=== PATIENT | male | born 1970 | race African-American/Black ===

== ENCOUNTER 2016-08-22 17:32 | Emergency (ER) | payer OTHER ==
[~2016-08-22] VITALS: Ht 175.3 cm; Wt 125.0 kg
[~2016-08-22 17:32] MED LIST: DIAZ5 PO; METF500 PO; METO25 PO; NAPR-576 PO; NAPR500 PO; ZITH250T PO
[2016-08-22 17:33] VITALS: BP 181/85; PULSE 95; RESP 14; TEMP 97.6; O2SAT 97
[2016-08-22] MEDS ORDERED: METF1000 PO (23:07)
[2016-08-22] MEDS ORDERED: SIMV20TA PO ×2 (23:07)
[2016-08-22] MEDS ORDERED: LISI-515 PO (23:07)
[2016-08-22] MEDS ORDERED: ZITHTAB PO (23:47)
[2016-08-22] MEDS ORDERED: FLUT1SPR5 EACH NARE (23:47)
[2016-08-22] MEDS ORDERED: DEXT1SUS PO (23:47)
[2016-08-23] MEDS ORDERED: IBUP-232 PO (00:14)
== END 2016-08-22 21:12 | disposition left against medical advice (07) ==
LOC: NED 17:32
DX: R05 Cough (principal)
CPT/HCPCS: 99281

== ENCOUNTER 2016-08-22 20:37 | Emergency (ER) | payer OTHER ==
[~2016-08-22] VITALS: Ht 175.3 cm; Wt 124.4 kg
[2016-08-22 21:20] VITALS: BP 155/89; PULSE 85; RESP 20; TEMP 98.5; O2SAT 97
[2016-08-22] MEDS ORDERED: SIMV20TA PO ×2 (23:07)
[2016-08-22] MEDS ORDERED: LISI-515 PO (23:07)
[2016-08-22] MEDS ORDERED: METF1000 PO (23:07)
--- NOTE | 2016-08-22 23:28 | PD ---
HPI Chief Complaint: Chest Pain Time Seen by Provider: 23:09 Travel History International Travel<30 days: No Contact w/Intl Traveler<30days: No Traveled to known affect area: No History of Present Illness HPI 46yo M with PMH of HTN, DM presents to the ED with c/o dry cough, nasal congestion, throat pain for 3 days. Pt states his ribs and chest hurt when he coughs. Mild nausea. +Nonbloody diarrhea. Denies any fever, sob, vomiting, abdominal pain, weakness or numbness. Pt states everyone at work is sick with similar complaints. PFSH Past Medical History Hx Anticoagulant Therapy: No Cardiovascular Problems: Yes (HTN) High Cholesterol: Yes Diabetes: Yes Patient Takes Glucophage: Yes Diminished Hearing: No Hypertension: Yes Tetanus Vaccination: Unknown Influenza Vaccination: No Past Surgical History Surgical History: No Previous Surgery Social History Alcohol Use: No Tobacco Use: No (quit 11 months ago smoked 1 pack of cigs a week) Substance Use: No Allergies-Medications (Allergen,Severity, Reaction): Coded Allergies: No Known Allergies (Unverified , 08/22/16) Reported Meds & Prescriptions Reported Meds & Active Scripts Active Ibuprofen 600 Mg Tab 600 Mg PO Q8HR PRN Robitussin 12 Hour Cough Liq (Dextromethorphan Polistirex Liq) 30 Mg/5 Ml Gwen 10 Ml PO Q12H PRN 5 Days Flonase Allergy Relief Nasal [place] (Fluticasone Nasal [place]) 50 Mcg/Act [place] 50 Mcg EACH NARE BID Zithromax Z-Truong (Azithromycin) 250 Mg Dspk 250 Mg PO DIRECTED 500 MG (2 tabs) day 1, then 1 tab days 2-5. Reported Simvastatin 20 Mg Tab 20 Mg PO HS Simvastatin 20 Mg Tab 20 Mg PO DAILY Lisinopril 20 Mg Tab 20 Mg PO DAILY Metformin (Metformin HCl) 1,000 Mg Tab 1,000 Mg PO BIDPC With meals Review of Systems Except as stated in HPI: all other systems reviewed are Neg Physical Exam Narrative GENERAL: 46yo M not in distress. SKIN: Warm and dry. HEAD: Atraumatic. Normocephalic. EYES: Pupils equal and round. No scleral icterus. No injection or drainage. ENT: +Edematous nasal turbinates. Throat: Uvula midline. No exudate. NECK: Trachea midline. No JVD. CARDIOVASCULAR: Regular rate and rhythm. No murmur appreciated. RESPIRATORY: No accessory muscle use. Clear to auscultation. Breath sounds equal bilaterally. GASTROINTESTINAL: Abdomen soft, non-tender, nondistended. No rebound tenderness or guarding. MUSCULOSKELETAL: No obvious deformities. No clubbing. No cyanosis. No edema. NEUROLOGICAL: Awake and alert. No obvious cranial nerve deficits. Motor grossly within normal limits. Normal speech. PSYCHIATRIC: Appropriate mood and affect; insight and judgment normal. Data Data Last Documented VS Vital Signs Date Time Temp Pulse Resp B/P Pulse Ox O2 Delivery O2 Flow Rate FiO2 08/22/16 23:44 62 19 157/85 99 Room Air 08/22/16 21:20 98.5 Orders Electrocardiogram (08/22/16 23:21) Basic Metabolic Panel (Bmp) (08/22/16 23:21) Ckmb (Isoenzyme) Profile (08/22/16 23:21) Complete Blood Count With Diff (08/22/16 23:21) Troponin I (08/22/16 23:21) Chest, Single Ap (08/22/16 23:21) Ecg Monitoring (08/22/16 23:21) Iv Access Insert/Monitor (08/22/16 23:21) Guaifen-Cod 200-20 Mg/10ml Liq (Robituss (08/22/16 23:30) Ibuprofen (Motrin) (08/23/16 00:15) Potassium Chloride (Kcl) (08/23/16 00:15) CKMB (08/22/16 23:40) CKMB% (08/22/16 23:40) Labs Laboratory Tests Test 08/22/16 23:40 White Blood Count 10.7 TH/MM3 Red Blood Count 4.98 MIL/MM3 Hemoglobin 14.2 GM/DL Hematocrit 42.7 % Mean Corpuscular Volume 85.9 FL Mean Corpuscular Hemoglobin 28.5 PG Mean Corpuscular Hemoglobin 33.2 % Concent Red Cell Distribution Width 12.4 % Platelet Count 224 TH/MM3 Mean Platelet Volume 7.4 FL Neutrophils (%) (Auto) 55.2 % Lymphocytes (%) (Auto) 30.2 % Monocytes (%) (Auto) 9.7 % Eosinophils (%) (Auto) 1.1 % Basophils (%) (Auto) 3.8 % Neutrophils # (Auto) 6.0 TH/MM3 Lymphocytes # (Auto) 3.2 TH/MM3 Monocytes # (Auto) 1.0 TH/MM3 Eosinophils # (Auto) 0.1 TH/MM3 Basophils # (Auto) 0.4 TH/MM3 CBC Comment DIFF FINAL Differential Comment Sodium Level 141 MEQ/L Potassium Level 3.3 MEQ/L Chloride Level 103 MEQ/L Carbon Dioxide Level 31.5 MEQ/L Anion Gap 7 MEQ/L Blood Urea Nitrogen 8 MG/DL Creatinine 1.10 MG/DL Estimat Glomerular Filtration 88 ML/MIN Rate Random Glucose 248 MG/DL Calcium Level 8.2 MG/DL Total Creatine Kinase 229 U/L Creatine Kinase MB 1.2 NG/ML Troponin I LESS THAN 0.02 NG/ML MDM Medical Decision Making Medical Screen Exam Complete: Yes Emergency Medical Condition: Yes Interpretation(s) EKG: NSR 84bpm. Normal axis. No ST segment elevation or depression. Differential Diagnosis Viral syndrome vs. URI vs. bronchitis vs. PNA vs. ACS Narrative Course 46yo M with symptoms consistent with viral syndrome. However, pt does have HTN and DM and is a former smoker so will obtain EKG, cardiac enzyme and CXR. Labs reviewed, no leukocytosis. Troponin negative. Glucose elevated at 248. No anion gap. K: 3.3, replaced orally with 40mEq KCl. CXR showed no acute disease. VS stable. Impression is viral syndrome and chest pain is musculoskeletal with coughing. Pt given robitussin and ibuprofen with improvement of pain. Return precautions given. Diagnosis Primary Impression: Viral syndrome Patient Instructions: General Instructions Departure Forms: Tests/Procedures Additional Instructions: Please follow up with your PMD in 3-7 days. Return to the ED if your symptoms worsen. Med/Other Pt SpecificInfo: Prescription(s) given Scripts Ibuprofen 600 Mg [id number] Mg PO Q8HR PRN (PAIN) #20 TAB Ref 0 Prov:Melissa Quarles DO 08/23/16 Dextromethorphan Polistirex Liq (Robitussin 12 Hour Cough Liq)30 Mg/5 Ml Sus10 Ml PO Q12H PRN (COUGH) 5 Days Ref 0 Prov:Melissa Quarles DO 08/22/16 Fluticasone Nasal [place] (Flonase Allergy Relief Nasal [place])50 Mcg/Act Spray50 Mcg EACH NARE BID #1 BOTTLE Ref 0 Prov:Melissa Quarles 08/22/16 Azithromycin (Zithromax Z-Truong)250 Mg [id number] Mg PO DIRECTED #1 DSPK Ref 0 500 MG (2 tabs) day 1, then 1 tab days 2-5. Prov:Melissa Quarles 08/22/16 Disposition: 01 DISCHARGE HOME Condition: Stable QuarlesMelissa DO Aug 22, 2016 23:27
[2016-08-22] MEDS ORDERED: guaiFENesin/CODEINE SYRUP 200 MG/20 MG/10 ML CUP PO ONE (23:30)
[2016-08-22 23:44] VITALS: BP 157/85; PULSE 62; RESP 19; O2SAT 99
[2016-08-22] MEDS ORDERED: ZITHTAB PO (23:47)
[2016-08-22] MEDS ORDERED: DEXT1SUS PO (23:47)
[2016-08-22] MEDS ORDERED: FLUT1SPR5 EACH NARE (23:47)
[2016-08-22 23:51] LABS: BASOPHIL # 0.4 TH/MM3 (0-0.2); BASOPHIL % 3.8 % (0.0-2.0); EOSINOPHIL # 0.1 TH/MM3 (0-0.4); EOSINOPHIL % 1.1 % (0.0-4.0); HEMATOCRIT 42.7 % (39.0-51.0); LYMPH % 30.2 % (9.0-44.0); LYMPHOCYTE # 3.2 TH/MM3 (1.0-4.8); MEAN CELL VOLUME 85.9 FL (80.0-100.0); MEAN CORPUSCULAR HEMOGLOBIN 28.5 PG (27.0-34.0); MEAN CORPUSCULAR HGB CONC 33.2 % (32.0-36.0); MONO % 9.7 % (0.0-8.0); NEUT % 55.2 % (16.0-70.0); PLATELET COUNT 224 TH/MM3 (150-450); RED BLOOD COUNT 4.98 MIL/MM3 (4.50-5.90); RED CELL DISTRIBUTION WIDTH 12.4 % (11.6-17.2); WHITE BLOOD COUNT 10.7 TH/MM3 (4.0-11.0)
[2016-08-22 23:52] LABS: HEMO FLAGS DIFF FINAL
--- NOTE | 2016-08-22 23:53 | RADHPO ---
EXAM DATE/TIME: 08/22/2016 23:42 [facility] COMPARISON: No previous studies available for comparison. INDICATIONS : Patient states cough. MEDICAL HISTORY : Hypertension. Hypercholesterolemia. Diabetes mellitus type II. SURGICAL HISTORY : None. ENCOUNTER: Initial ACUITY: 3 days PAIN SCORE: 0/10 LOCATION: Bilateral chest FINDINGS: A single view of the chest demonstrates the lungs to be symmetrically aerated without evidence of mas s, infiltrate or effusion. The cardiomediastinal contours are unremarkable. Osseous structures are intact.CONCLUSION: No acute disease. Yuri Obregon MD on August 22, 2016 at 23:52 Board Certified Radiologist. This report was verified electronically.
[2016-08-22 23:59] LABS: CHLORIDE 103 MEQ/L (98-107); POTASSIUM 3.3 MEQ/L (3.5-5.1); SODIUM (NA) 141 MEQ/L (136-145)
[2016-08-23 00:02] LABS: ANION GAP 7 MEQ/L (5-15); BICARBONATE 31.5 MEQ/L (21.0-32.0); BLOOD UREA NITROGEN 8 MG/DL (7-18)
[2016-08-23 00:06] LABS: GLOMERULAR FILTRATION RATE 88 ML/MIN (>89)
[2016-08-23 00:09] LABS: CREATINE KINASE 229 U/L (39-308)
[2016-08-23] MEDS ORDERED: IBUP-232 PO (00:14)
[2016-08-23] MEDS ORDERED: IBUPROFEN 600 MG TAB PO ONE (00:15)
[2016-08-23] MEDS ORDERED: POTASSIUM CHLORIDE 20 MEQ CONTROLLED RELEASE TAB PO ONE (00:15)
[2016-08-23 00:22] LABS: CKMB 1.2 NG/ML (0.5-3.6)
[2016-08-23 00:39] VITALS: BP 153/77
--- NOTE | 2016-08-23 16:27 | EKG ---
Date Performed: 08/22/2016 Time Performed: 23:33:48 PTAGE: 46 years EKG: Sinus rhythm Normal ECG NO PREVIOUS TRACING DOCTOR: Med Maloney Interpretating Date/Time 08/23/2016 16:24:57
== END 2016-08-23 00:40 | disposition home or self-care (01) ==
LOC: PHED 20:37
DX: B34.9 Viral infection, unspecified (principal); E11.9 Type 2 diabetes mellitus without complications; E78.00 Pure hypercholesterolemia, unspecified; I10 Essential (primary) hypertension; Z79.4 Long term (current) use of insulin; Z87.891 Personal history of nicotine dependence
CPT/HCPCS: 71010; 80048; 82550; 82552; 84484; 85025; 93005

== ENCOUNTER 2016-09-17 18:44 | Emergency (ER) | payer OTHER ==
[~2016-09-17] VITALS: Ht 172.7 cm; Wt 123.2 kg
[~2016-09-17 18:44] MED LIST changes: +DEXT1SUS PO; -DIAZ5 PO; +FLUT1SPR5 EACH NARE; +IBUP-232 PO; +LISI-515 PO; +METF1000 PO; -METF500 PO; -METO25 PO; -NAPR-576 PO; -NAPR500 PO; +SIMV20TA PO; -ZITH250T PO; +ZITHTAB PO
[2016-09-17 19:09] VITALS: BP 155/99; PULSE 86; RESP 20; TEMP 98.5; O2SAT 98
--- NOTE | 2016-09-17 20:35 | PD ---
HPI Chief Complaint: Headache Time Seen by Provider: 20:03 Travel History International Travel<30 days: No Contact w/Intl Traveler<30days: No Traveled to known affect area: No History of Present Illness HPI Patient is a 46-year-old male with a history of diabetes presents emergency department for evaluation of dizziness as well as headache which happened about 1400 this afternoon. Patient states he was bending over at the waist and suddenly felt dizzy like the room was spinning only lasted for a few seconds. He states he had a mild headache at that time which is nearly resolved completely at this time. Denies any focal weakness any problems ambulating nausea vomiting. Patient states this is never happened to him before, no history of TIAs. PFSH Past Medical History Hx Anticoagulant Therapy: No Cardiovascular Problems: Yes (HYPERTENSION ) High Cholesterol: Yes Diabetes: Yes Patient Takes Glucophage: Yes Diminished Hearing: No Hypertension: Yes ?: Not Social History Alcohol Use: No Tobacco Use: No (quit 11 months ago smoked 1 pack of cigs a week) Substance Use: No Allergies-Medications (Allergen,Severity, Reaction): Coded Allergies: No Known Allergies (Unverified , 08/22/16) Reported Meds & Prescriptions Reported Meds & Active Scripts Active Ibuprofen 600 Mg Tab 600 Mg PO Q8HR PRN Flonase Allergy Relief Nasal [place] (Fluticasone Nasal [place]) 50 Mcg/Act [place] 50 Mcg EACH NARE BID Reported Simvastatin 20 Mg Tab 20 Mg PO DAILY Lisinopril 20 Mg Tab 20 Mg PO DAILY Metformin (Metformin HCl) 1,000 Mg Tab 1,000 Mg PO BIDPC With meals Review of Systems Except as stated in HPI: all other systems reviewed are Neg Physical Exam Narrative GENERAL: Well-developed well-nourished no apparent distress SKIN: Warm and dry. HEAD: Atraumatic. Normocephalic. EYES: Pupils equal and round. No scleral icterus. No injection or drainage. ENT: No nasal bleeding or discharge. Mucous membranes pink and moist. NECK: Trachea midline. No JVD. CARDIOVASCULAR: Regular rate and rhythm. No murmur appreciated. RESPIRATORY: No accessory muscle use. Clear to auscultation. Breath sounds equal bilaterally. GASTROINTESTINAL: Abdomen soft, non-tender, nondistended. Hepatic and splenic margins not palpable. MUSCULOSKELETAL: No obvious deformities. No clubbing. No cyanosis. No edema. NEUROLOGICAL: Leg alert and oriented 3, cranial nerves II through XII are grossly intact nonfocal, 5 out of 5 strength in all 4 extremities, cerebellar testing normal. PSYCHIATRIC: Appropriate mood and affect; insight and judgment normal. Data Data Last Documented VS Vital Signs Date Time Temp Pulse Resp B/P Pulse Ox O2 Delivery O2 Flow Rate FiO2 09/17/16 20:57 78 18 141/82 99 09/17/16 19:09 98.5 Orders Ibuprofen (Motrin) (09/17/16 20:45) [facility] Medical Decision Making Medical Screen Exam Complete: Yes Emergency Medical Condition: Yes Differential Diagnosis Headache, cluster, migraine, tension. Subarachnoid hemorrhage extremely unlikely, acute stroke syndrome highly unlikely. Benign paroxysmal vertigo. Narrative Course Is a 46-year-old male presents emergency department for evaluation of headache and dizziness onset approximately noon today. Patient on arrival had symptoms have near completely resolved except for mild headache. Patient is coming by his and both state they would like to go home at this point. I discussed with him that basilar TIA is on the differential but is highly unlikely. Discussed he needs to follow up with his primary care physician for further workup. Discussed return to ED criteria. He was offered CAT scan and he declined at this time citing risk of radiation. Diagnosis Primary Impression: Headache Qualified Code: R51 - Nonintractable headache, unspecified chronicity pattern , unspecified headache type Disposition: 01 DISCHARGE HOME Condition: Stable Ayush Castañeda MD Sep 17, 2016 20:35
[2016-09-17] MEDS ORDERED: IBUPROFEN 600 MG TAB PO ONE (20:45)
[2016-09-17 20:57] VITALS: BP 141/82
== END 2016-09-17 21:17 | disposition home or self-care (01) ==
LOC: PHED 18:44
DX: R51 Headache (principal); R42 Dizziness and giddiness; E11.9 Type 2 diabetes mellitus without complications; I10 Essential (primary) hypertension; E78.00 Pure hypercholesterolemia, unspecified; Z79.84 Long term (current) use of oral hypoglycemic drugs; Z86.79 Personal history of other diseases of the circulatory system; Z87.891 Personal history of nicotine dependence
CPT/HCPCS: 99283

== ENCOUNTER 2016-11-15 17:55 | Emergency (ER) | payer OTHER ==
[~2016-11-15] VITALS: Ht 175.3 cm; Wt 120.0 kg
[~2016-11-15 17:55] MED LIST changes: -DEXT1SUS PO; -ZITHTAB PO
[2016-11-15 18:06] VITALS: BP 148/79; PULSE 99; RESP 16; TEMP 98.7; O2SAT 96
[2016-11-15] MEDS ORDERED: EMPA1TAB PO (18:10)
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
[2016-11-15 18:43] LABS: AUTOMATED NEUTROPHIL # 5.1 TH/MM3 (1.8-7.7); BASOPHIL # 0.3 TH/MM3 (0-0.2); EOSINOPHIL # 0.1 TH/MM3 (0-0.4); EOSINOPHIL % 0.6 % (0.0-4.0); HEMATOCRIT 42.5 % (39.0-51.0); HEMO FLAGS DIFF FINAL; LYMPH % 28.5 % (9.0-44.0); LYMPHOCYTE # 2.5 TH/MM3 (1.0-4.8); MEAN CELL VOLUME 85.4 FL (80.0-100.0); MEAN CORPUSCULAR HEMOGLOBIN 29.4 PG (27.0-34.0); MEAN CORPUSCULAR HGB CONC 34.5 % (32.0-36.0); MONO % 8.5 % (0.0-8.0); NEUT % 58.4 % (16.0-70.0); PLATELET COUNT 218 TH/MM3 (150-450); RED BLOOD COUNT 4.98 MIL/MM3 (4.50-5.90); RED CELL DISTRIBUTION WIDTH 12.3 % (11.6-17.2); WHITE BLOOD COUNT 8.7 TH/MM3 (4.0-11.0)
[2016-11-15 18:50] LABS: POTASSIUM 3.8 MEQ/L (3.5-5.1)
[2016-11-15 18:53] LABS: BICARBONATE 33.1 MEQ/L (21.0-32.0)
[2016-11-15 19:35] VITALS: BP 145/75
== END 2016-11-15 19:37 | disposition home or self-care (01) ==
LOC: PHED 17:55
DX: E11.649 Type 2 diabetes mellitus with hypoglycemia without coma (principal); R42 Dizziness and giddiness; I10 Essential (primary) hypertension; E78.00 Pure hypercholesterolemia, unspecified; Z79.84 Long term (current) use of oral hypoglycemic drugs
CPT/HCPCS: 80048; 85025; 99285

== ENCOUNTER 2017-04-07 11:14 | Emergency (ER) | payer OTHER ==
[~2017-04-07] VITALS: Ht 175.3 cm; Wt 120.0 kg
[~2017-04-07 11:14] MED LIST changes: +EMPA1TAB PO; -FLUT1SPR5 EACH NARE; -IBUP-232 PO
[2017-04-07 11:16] VITALS: BP 146/88; PULSE 95; RESP 14; TEMP 98.2; O2SAT 98
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
[2017-04-07 12:05] LABS: BLOOD, URINE NEG (NEG); GLUCOSE,URINE 1000 mg/dL (NEG); KETONE, URINE NEG (NEG); NITRITE,URINE NEG (NEG); URINE COLOR LIGHT-YELLOW (YELLW/STRAW)
[2017-04-07 12:08] LABS: COMMENT (UR) CULT NOT INDICATED; CULTURE IF INDICATED CULT NOT INDICATED
[2017-04-07 12:26] LABS: AUTOMATED NEUTROPHIL # 5.2 TH/MM3 (1.8-7.7); BASOPHIL # 0.1 TH/MM3 (0-0.2); BASOPHIL % 1.1 % (0.0-2.0); EOSINOPHIL # 0.1 TH/MM3 (0-0.4); EOSINOPHIL % 1.1 % (0.0-4.0); HEMATOCRIT 43.1 % (39.0-51.0); HEMO FLAGS DIFF FINAL; LYMPH % 27.5 % (9.0-44.0); LYMPHOCYTE # 2.3 TH/MM3 (1.0-4.8); MEAN CELL VOLUME 84.3 FL (80.0-100.0); MEAN CORPUSCULAR HEMOGLOBIN 29.7 PG (27.0-34.0); MEAN CORPUSCULAR HGB CONC 35.2 % (32.0-36.0); NEUT % 62.3 % (16.0-70.0); PLATELET COUNT 201 TH/MM3 (150-450); RED BLOOD COUNT 5.12 MIL/MM3 (4.50-5.90); RED CELL DISTRIBUTION WIDTH 13.3 % (11.6-17.2); WHITE BLOOD COUNT 8.4 TH/MM3 (4.0-11.0)
[2017-04-07 12:31] LABS: BICARBONATE 28.6 MEQ/L (21.0-32.0); POTASSIUM 3.9 MEQ/L (3.5-5.1)
--- NOTE | 2017-04-07 12:35 | PD ---
Data Data Last Documented VS Vital Signs Date Time Temp Pulse Resp B/P (MAP) Pulse Ox O2 Delivery O2 Flow Rate FiO2 04/07/17 11:16 98.2 95 14 146/88 (107) 98 Orders Orders Iv Access Insert/Monitor (04/07/17 11:39) Complete Blood Count With Diff (04/07/17 11:39) Basic Metabolic Panel (Bmp) (04/07/17 11:39) Urinalysis - C+S If Indicated (04/07/17 11:39) Wound Culture And Gram Stain (04/07/17 12:23) Insulin Human Regular Inj (Novolin R Inj (04/07/17 12:45) Sodium Chlor 0.9% 1000 Ml Inj (Ns 1000 M (04/07/17 12:45) Labs Laboratory Tests Test 04/07/17 11:52 04/07/17 11:57 Urine Color LIGHT-YELLOW Urine Turbidity CLEAR Urine pH 7.0 Urine Specific [place] 1.026 Urine Protein NEG mg/dL Urine Glucose (UA) 1000 mg/dL Urine Ketones NEG mg/dL Urine Occult Blood NEG Urine Nitrite NEG Urine Bilirubin NEG Urine Urobilinogen LESS THAN 2.0 MG/DL Urine Leukocyte Esterase NEG Urine WBC LESS THAN 1 /hpf Microscopic Urinalysis Comment CULT NOT INDICATED White Blood Count 8.4 TH/MM3 Red Blood Count 5.12 MIL/MM3 Hemoglobin 15.2 GM/DL Hematocrit 43.1 % Mean Corpuscular Volume 84.3 FL Mean Corpuscular Hemoglobin 29.7 PG Mean Corpuscular Hemoglobin Concent 35.2 % Red Cell Distribution Width 13.3 % Platelet Count 201 TH/MM3 Mean Platelet Volume 8.0 FL Neutrophils (%) (Auto) 62.3 % Lymphocytes (%) (Auto) 27.5 % Monocytes (%) (Auto) 8.0 % Eosinophils (%) (Auto) 1.1 % Basophils (%) (Auto) 1.1 % Neutrophils # (Auto) 5.2 TH/MM3 Lymphocytes # (Auto) 2.3 TH/MM3 Monocytes # (Auto) 0.7 TH/MM3 Eosinophils # (Auto) 0.1 TH/MM3 Basophils # (Auto) 0.1 TH/MM3 CBC Comment DIFF FINAL Differential Comment Blood Urea Nitrogen 12 MG/DL Creatinine 1.39 MG/DL Random Glucose 382 MG/DL Calcium Level 9.3 MG/DL Sodium Level 135 MEQ/L Potassium Level 3.9 MEQ/L Chloride Level 100 MEQ/L Carbon Dioxide Level 28.6 MEQ/L Anion Gap 6 MEQ/L Estimat Glomerular Filtration Rate 67 ML/MIN MDM Supervised Visit with AINSLEY: Yes Narrative Course The history, exam, and medical decision-making in the associated midlevel provider note were completed with my assistance. I reviewed and agree with the findings presented. I attest that I had a [id number] encounter with the patient on the same day, and personally performed and documented my assessment and findings in the medical record. *My assessment and Findings: This is a 46-year-old male who has a history of diabetes who presents to the emergency department having run out of his diabetes medication also with some small boils on his abdomen. His blood sugar here was 382. His labs are otherwise reassuring. Patient was given a liter of IV fluid and insulin. He'll be restarted on his metformin and his abscesses were incized . I think the patient is safe for outpatient management. Heaven Anderson MD Apr 07, 2017 12:35
[2017-04-07] MEDS ORDERED: METF1000 PO (12:40)
[2017-04-07] MEDS ORDERED: BACT800T5 PO (12:40)
[2017-04-07] MEDS ORDERED: CEPH-460 PO (12:40)
[2017-04-07] MEDS ORDERED: LISI-515 PO (12:40)
[2017-04-07] MEDS ORDERED: SODIUM CHLOR 0.9% 1000 ML INJ 1,000 ML IV ONE (12:45)
[2017-04-07] MEDS ORDERED: INSULIN HUMAN REGULAR 1,000 UNITS/10 ML VIAL SQ ONE (12:45)
[2017-04-07 13:25] VITALS: BP 129/86; PULSE 82; RESP 16; O2SAT 98
== END 2017-04-07 13:33 | disposition home or self-care (01) ==
LOC: NEPC 11:14
DX: L02.211 Cutaneous abscess of abdominal wall (principal); E11.65 Type 2 diabetes mellitus with hyperglycemia; M79.645 Pain in left finger(s); B96.20 Unspecified Escherichia coli [E. coli] as the cause of diseases classified elsewhere; B95.2 Enterococcus as the cause of diseases classified elsewhere; I10 Essential (primary) hypertension; E78.00 Pure hypercholesterolemia, unspecified; Z79.84 Long term (current) use of oral hypoglycemic drugs; Z86.79 Personal history of other diseases of the circulatory system
CPT/HCPCS: 10061; 80048; 81001; 85025; 87070; 87077; 87186; 96372; 99284; J1815; J7030; 87205

== ENCOUNTER 2017-04-10 11:32 | Emergency (ER) | payer OTHER ==
[~2017-04-10] VITALS: Ht 175.3 cm; Wt 120.0 kg
[~2017-04-10 11:32] MED LIST changes: +BACT800T5 PO; +CEPH-460 PO
[2017-04-10 11:33] VITALS: BP 132/66; PULSE 95; RESP 20; TEMP 98.8; O2SAT 97
[2017-04-10 11:40] VITALS: BP 155/70; PULSE 91; RESP 14; TEMP 98; O2SAT 97
--- NOTE | 2017-04-10 11:42 | PD ---
HPI Chief Complaint: Skin Problem Time Seen by Provider: 11:42 Travel History International Travel<30 days: No Contact w/Intl Traveler<30days: No Traveled to known affect area: No History of Present Illness HPI 46-year-old male came to the emergency room with history of right thumb infection that has been getting worse since past 4 days. She was in the emergency room on Friday and was discharged home on Bactrim and Keflex for some boils that were incised and drained and was told that the antibiotic should cover for his thumb as well. However the abdominal skin boils have become much better but he has developed worsening abscess on his right thumb. Patient is also complaining of some rash and thrush at the tip of his penis. Patient is a diabetic. He says he's been taking his medications like he supposed to. Vital signs were stable. No fever or chills. PFSH Past Medical History Narrative Medical List of his past medical, surgical, social and family history was reviewed from the nursing note. Hx Anticoagulant Therapy: No Cardiovascular Problems: Yes (HYPERTENSION ) High Cholesterol: Yes Diabetes: Yes Diminished Hearing: No Hypertension: Yes Social History Alcohol Use: No Tobacco Use: No Substance Use: No Allergies-Medications (Allergen,Severity, Reaction): Coded Allergies: No Known Allergies (Unverified , 04/10/17) Comments No known drug allergies. Reported Meds & Prescriptions Reported Meds & Active Scripts Active Diflucan (Fluconazole) 150 Mg Tab 150 Mg PO ONCE Nystatin Topical (Nystatin) 100,000 unit/gm Cream 1 Applic TOPICAL BID Ampicillin 500 Mg Cap 500 Mg PO TID Keflex (Cephalexin) 500 Mg Cap 500 Mg PO Q6H 10 Days Bactrim DS (Sulfamethoxazole-Trimethoprim) 800-160 Mg Tab 1 Tab PO BID Lisinopril 20 Mg Tab 20 Mg PO DAILY Metformin (Metformin HCl) 1,000 Mg Tab 1,000 Mg PO BIDPC With meals Reported Jardiance (Empagliflozin) 10 Mg Tab Unknown Dose PO DAILY Simvastatin 20 Mg Tab 20 Mg PO DAILY Narrative Medication List of his home medications reviewed from the nursing note. Review of Systems Except as stated in HPI: all other systems reviewed are Neg Physical Exam Narrative GENERAL: Awake, alert, obese, mild distress SKIN: Focused skin assessment warm/dry. Left thumb paronychia on the ulnar aspect of the nail, healing pustules on the abdomen. HEAD: Atraumatic. Normocephalic. EYES: Pupils equal and round. No scleral icterus. No injection or drainage. ENT: No nasal bleeding or discharge. Mucous membranes pink and moist. NECK: Trachea midline. No JVD. CARDIOVASCULAR: Regular rate and rhythm. No murmur appreciated. RESPIRATORY: No accessory muscle use. Clear to auscultation. Breath sounds equal bilaterally. GASTROINTESTINAL: Abdomen soft, non-tender, nondistended. Hepatic and splenic margins not palpable. : Patient is uncircumcised and he has thrush on the glans penis as well as the prepuce MUSCULOSKELETAL: No obvious deformities. No clubbing. No cyanosis. No edema. NEUROLOGICAL: Awake and alert. No obvious cranial nerve deficits. Motor grossly within normal limits. Normal speech. PSYCHIATRIC: Appropriate mood and affect; insight and judgment normal. Data Data Last Documented VS Vital Signs Date Time Temp Pulse Resp B/P (MAP) Pulse Ox O2 Delivery O2 Flow Rate FiO2 04/10/17 13:26 04/10/17 11:40 98.0 91 14 97 Room Air Orders Orders Wound Culture And Gram Stain (04/10/17 12:01) Amoxicillin (Trimox) (04/10/17 12:45) MDM Medical Decision Making Medical Screen Exam Complete: Yes Emergency Medical Condition: Yes Medical Record Reviewed: Yes Differential Diagnosis Paronychia, candidiasis Narrative Course 12:25 PM the paronychia was drained. Please refer to my procedure note. Culture has been sent. The culture of the wound from the incision and drainage from Friday is growing Escherichia coli and enterococcus. They both are sensitive to ampicillin. Patient was sent home on Bactrim and Keflex. I have asked the patient to stop taking the Keflex and instead started him on ampicillin. I've asked him to continue with the Bactrim pending the culture result of the paronychia pus. I've also given him a prescription for nystatin as well as Diflucan. He'll be discharged home. Patient tolerated the procedure well. Procedures Procedure Narrative Paronychia incision and drainage: The area was cleaned with alcohol and Betadine times one. A sterile #11 blade was chosen to make a 1 cm incision at the proximal nail fold extending into the lateral nail fold on the ulnar aspect of the left thumb. Immediately thick purulent material came out. Swab was collected. Some more purulent material was expressed until no more could be expressed out. Patient tolerated the procedure well. EKG Prior to Arrival: No Diagnosis Primary Impression: Paronychia Additional Impression: Candidiasis Referrals: Primary Care Physician Departure Forms: Tests/Procedures, Work Release Enter return to work date: Apr 11, 2017 Additional Instructions: Please return to the ER if the condition worsens or any other new concerns. Please soak the thumb in lukewarm water with some Epsom salt 10 minutes each time as frequently as possible during the day until the wound completely heals. Take the new antibiotic as per the prescription direction. Please stop taking cephalexin which was given to you 4 days ago. You should continue taking the Bactrim and finish the course. Take the additional medication prescription for your yeast infection as well. Follow-up with your primary care. Continue checking her blood sugar and take the diabetes medication as per the prescription direction. Med/Other Pt SpecificInfo: Prescription(s) given, Med Stopped (cephalexin) Scripts Fluconazole (Diflucan) 150 Mg Tab 150 MG PO ONCE for Infection, #1 TAB 0 Refills Prov: La Payne MD 04/10/17 Nystatin Topical (Nystatin Topical) 100,000 unit/gm Cream 1 APPLIC TOPICAL BID for Infection, #15 GM 0 Refills Prov: La Payne MD 04/10/17 Ampicillin (Ampicillin) 500 Mg Cap 500 MG PO TID, #30 CAP Prov: La Payne MD 04/10/17 Disposition: 01 DISCHARGE HOME Condition: Stable La Payne MD Apr 10, 2017 11:42
[2017-04-10] MEDS ORDERED: AMPICILLIN 500 MG CAP PO ONE (12:15)
[2017-04-10] MEDS ORDERED: DIFL150T PO (12:20)
[2017-04-10] MEDS ORDERED: AMPI500C8 PO (12:20)
[2017-04-10] MEDS ORDERED: NYST15T TOPICAL (12:20)
[2017-04-10] MEDS ORDERED: AMOXICILLIN (TRIHYDRATE) 500 MG CAP PO ONE (12:45)
== END 2017-04-10 13:26 | disposition home or self-care (01) ==
LOC: NEPD 11:32
DX: L03.012 Cellulitis of left finger (principal); B37.9 Candidiasis, unspecified; B96.20 Unspecified Escherichia coli [E. coli] as the cause of diseases classified elsewhere; I10 Essential (primary) hypertension; E78.00 Pure hypercholesterolemia, unspecified; E11.9 Type 2 diabetes mellitus without complications; Z79.899 Other long term (current) drug therapy
CPT/HCPCS: 86403; 87070; 87077; 87186; 99284

== ENCOUNTER 2017-08-11 15:01 | Emergency (ER) | payer OTHER ==
[~2017-08-11 15:01] MED LIST changes: +AMPI500C8 PO; +DIFL150T PO; +NYST15T TOPICAL
[2017-08-11 15:06] VITALS: BP 150/75; PULSE 94; RESP 22; TEMP 98.9; O2SAT 97
[2017-08-11 16:21] VITALS: BP 140/75; PULSE 93; RESP 16; TEMP 99.5; O2SAT 96
[2017-08-11] MEDS ORDERED: LISI10TA3 PO (16:28)
[2017-08-11] MEDS ORDERED: ONDANSETRON HCL 4 MG/2 ML VIAL IV PUSH ONE (17:00)
[2017-08-11] MEDS ORDERED: KETOROLAC TROMETHAMINE 30 MG/ML (IVP) VIAL IV PUSH ONE (17:00)
[2017-08-11] MEDS ORDERED: SODIUM CHLOR 0.9% 1000 ML INJ 1,000 ML IV ONE (17:00)
--- NOTE | 2017-08-11 17:22 | RADRPT ---
EXAM DATE/TIME: 08/11/2017 17:08 [facility] COMPARISON: CHEST SINGLE AP, August 22, 2016, 23:42. INDICATIONS : Cough, shortness of breath, and substernal chest pain. MEDICAL HISTORY : Hypertension. Hypercholesterolemia. Diabetes mellitus type II. SURGICAL HISTORY : None. ENCOUNTER: Initial ACUITY: 3 days PAIN SCORE: 4/10 LOCATION: Bilateral chest FINDINGS: PA and lateral views of the chest demonstrate the lungs to be symmetrically aerated without evidence of mass, infiltrate or effusion. The cardiomediastinal contours are unremarkable. Osseous structure s are intact. CONCLUSION: 1. No acute cardiopulmonary findings. Nazario Christianson MD on August 11, 2017 at 17:19 Board Certified Radiologist. This report was verified electronically.
[2017-08-11 17:44] LABS: AUTOMATED NEUTROPHIL # 5.3 TH/MM3 (1.8-7.7); BASOPHIL # 0.1 TH/MM3 (0-0.2); BASOPHIL % 0.9 % (0.0-2.0); EOSINOPHIL % 0.4 % (0.0-4.0); HEMATOCRIT 48.3 % (39.0-51.0); HEMOGLOBIN 15.3 GM/DL (13.0-17.0); LYMPH % 20.8 % (9.0-44.0); LYMPHOCYTE # 1.6 TH/MM3 (1.0-4.8); MEAN CELL VOLUME 88.7 FL (80.0-100.0); MEAN CORPUSCULAR HGB CONC 31.6 % (32.0-36.0); MEAN PLATELET VOLUME 7.2 FL (7.0-11.0); MONO % 10.8 % (0.0-8.0); MONOCYTE # 0.8 TH/MM3 (0-0.9); NEUT % 67.1 % (16.0-70.0); PLATELET COUNT 194 TH/MM3 (150-450); RED BLOOD COUNT 5.45 MIL/MM3 (4.50-5.90); RED CELL DISTRIBUTION WIDTH 13.3 % (11.6-17.2); WHITE BLOOD COUNT 7.9 TH/MM3 (4.0-11.0)
[2017-08-11 17:46] LABS: CHLORIDE 102 MEQ/L (98-107); SODIUM (NA) 141 MEQ/L (136-145)
[2017-08-11 17:49] LABS: CALCIUM 8.5 MG/DL (8.5-10.1)
[2017-08-11 17:50] LABS: ALBUMIN 3.3 GM/DL (3.4-5.0); BICARBONATE 31.5 MEQ/L (21.0-32.0); BLOOD UREA NITROGEN 10 MG/DL (7-18); GLUCOSE,RANDOM 100 MG/DL (74-106)
[2017-08-11 17:53] LABS: ALT (GPT) 39 U/L (12-78); AST (GOT) 36 U/L (15-37); GLOMERULAR FILTRATION RATE 98 ML/MIN (>89)
[2017-08-11 17:54] LABS: TOTAL BILIRUBIN ADULT 0.5 MG/DL (0.2-1.0); TOTAL PROTEIN 7.1 GM/DL (6.4-8.2)
[2017-08-11 17:56] LABS: ALKALINE PHOSPHATASE 82 U/L (45-117)
--- NOTE | 2017-08-11 18:18 | PD ---
HPI Chief Complaint: Chest Pain Time Seen by Provider: 16:36 Travel History International Travel<30 days: No Contact w/Intl Traveler<30days: No Traveled to known affect area: No History of Present Illness HPI Patient is a 47-year-old male who comes in complaining of cough, shortness of breath, nausea and vomiting, muscle aches for the past 3 days. He says it started pretty suddenly on Friday. He has felt like he has had a fever and chills. He has tried taking anything for his symptoms. He says every time he eats he vomits. He denies any abdominal pain, he says he has rib pain from coughing. Nothing seems to improve his symptoms. PFSH Past Medical History Hx Anticoagulant Therapy: No Cardiovascular Problems: Yes (HYPERTENSION ) High Cholesterol: Yes Diabetes: Yes Patient Takes Glucophage: Yes Diminished Hearing: No Hypertension: Yes Tetanus Vaccination: Unknown Influenza Vaccination: No Past Surgical History Surgical History: No Previous Surgery Social History Alcohol Use: No Tobacco Use: No (quit 3 yrs ago smoked 3-4 cigs a day) Substance Use: No Allergies-Medications (Allergen,Severity, Reaction): Coded Allergies: No Known Allergies (Unverified Adverse Reaction, Unknown, 08/11/17) Reported Meds & Prescriptions Reported Meds & Active Scripts Active Metformin (Metformin HCl) 1,000 Mg Tab 1,000 Mg PO BIDPC With meals Reported Lisinopril 10 Mg Tab 10 Mg PO DAILY Jardiance (Empagliflozin) 10 Mg Tab 25 Mg PO DAILY Simvastatin 20 Mg Tab 20 Mg PO DAILY Review of Systems Except as stated in HPI: all other systems reviewed are Neg General / Constitutional: Positive: Fever, Chills HENT: No: Headaches, Lightheadedness Cardiovascular: No: Chest Pain or Discomfort Respiratory: Positive: Cough, Shortness of Breath Gastrointestinal: Positive: Nausea, Vomiting, No: Abdominal Pain Genitourinary: No: Dysuria Musculoskeletal: Positive: Myalgias Skin: No Rash, No Change in Pigmentation Neurologic: No: Weakness, Dizziness Physical Exam Narrative GENERAL: Awake and alert, in no acute distress. SKIN: Focused skin assessment warm/dry. No rash or signs of infection. HEAD: Atraumatic. Normocephalic. EYES: Pupils equal and round. No scleral icterus. ENT: Mucous membranes pink and moist. NECK: Trachea midline. No JVD. CARDIOVASCULAR: Regular rate and rhythm. No murmur appreciated. RESPIRATORY: No accessory muscle use. Clear to auscultation. Breath sounds equal bilaterally. GASTROINTESTINAL: Abdomen soft, non-tender, nondistended. MUSCULOSKELETAL: No obvious deformities. No clubbing. No cyanosis. No edema. NEUROLOGICAL: Awake and alert. No obvious cranial nerve deficits. Motor grossly within normal limits. Normal speech. PSYCHIATRIC: Appropriate mood and affect; insight and judgment normal. Data Data Last Documented VS Vital Signs Date Time Temp Pulse Resp B/P (MAP) Pulse Ox O2 Delivery O2 Flow Rate FiO2 08/11/17 16:21 99.5 93 16 140/75 (96) 96 Room Air Orders Orders Iv Access Insert/Monitor (08/11/17 17:00) Complete Blood Count With Diff (08/11/17 17:00) Comprehensive Metabolic Panel (08/11/17 17:00) Influenzae A/B Antigen (08/11/17 17:00) Chest, Pa & Lat (08/11/17 ) Sodium Chlor 0.9% 1000 Ml Inj (Ns 1000 M (08/11/17 17:00) Ketorolac Inj (Toradol Inj) (08/11/17 17:00) Ondansetron Inj (Zofran Inj) (08/11/17 17:00) Labs Laboratory Tests Test 08/11/17 17:27 White Blood Count 7.9 TH/MM3 Red Blood Count 5.45 MIL/MM3 Hemoglobin 15.3 GM/DL Hematocrit 48.3 % Mean Corpuscular Volume 88.7 FL Mean Corpuscular Hemoglobin 28.0 PG Mean Corpuscular Hemoglobin Concent 31.6 % Red Cell Distribution Width 13.3 % Platelet Count 194 TH/MM3 Mean Platelet Volume 7.2 FL Neutrophils (%) (Auto) 67.1 % Lymphocytes (%) (Auto) 20.8 % Monocytes (%) (Auto) 10.8 % Eosinophils (%) (Auto) 0.4 % Basophils (%) (Auto) 0.9 % Neutrophils # (Auto) 5.3 TH/MM3 Lymphocytes # (Auto) 1.6 TH/MM3 Monocytes # (Auto) 0.8 TH/MM3 Eosinophils # (Auto) 0.0 TH/MM3 Basophils # (Auto) 0.1 TH/MM3 CBC Comment DIFF FINAL Differential Comment Blood Urea Nitrogen 10 MG/DL Creatinine 1.00 MG/DL Random Glucose 100 MG/DL Total Protein 7.1 GM/DL Albumin 3.3 GM/DL Calcium Level 8.5 MG/DL Alkaline Phosphatase 82 U/L Aspartate Amino Transf (AST/SGOT) 36 U/L Alanine Aminotransferase (ALT/SGPT) 39 U/L Total Bilirubin 0.5 MG/DL Sodium Level 141 MEQ/L Potassium Level 3.4 MEQ/L Chloride Level 102 MEQ/L Carbon Dioxide Level 31.5 MEQ/L Anion Gap 8 MEQ/L Estimat Glomerular Filtration Rate 98 ML/MIN MDM Medical Decision Making Medical Screen Exam Complete: Yes Emergency Medical Condition: Yes Medical Record Reviewed: Yes Differential Diagnosis Influenza versus pneumonia versus URI versus gastroenteritis Narrative Course Patient is a 47-year-old male comes in complaining of cough, body aches, nausea or vomiting. Exam shows no acute abnormalities. IV established, labs sent. Labs show no acute abnormalities. Influenza swab is positive for influenza A. Patient given IV fluids, Toradol, Zofran. He reports feeling better. He is able to drink water without vomiting. He is advised to drink plenty of fluids, take Tylenol or ibuprofen for pain or fever. Advised follow-up with a primary care doctor. Advised to return to the ED as needed for any worsening symptoms. Diagnosis Primary Impression: Influenza A Patient Instructions: General Instructions, Influenza (ED) Additional Instructions: Drink plenty of fluids. Take Tylenol or ibuprofen as needed for pain or fever. Take Zofran as needed for nausea. Return to the ED as needed for any worsening symptoms. Scripts Ondansetron Odt (Zofran Odt) 4 Mg Tab 4 MG SL Q6HR Y for Nausea/Vomiting, #12 TAB 0 Refills Prov: Korina Kimbrough MD 08/11/17 Disposition: 01 DISCHARGE HOME Condition: Stable Korina Kimbrough MD Aug 11, 2017 18:17
[2017-08-11] MEDS ORDERED: ZOFR4TAB3 SL (18:23)
[2017-08-11 18:26] VITALS: RESP 16
[2017-08-11 18:47] VITALS: BP 145/79
--- NOTE | 2017-08-12 16:31 | EKG ---
Date Performed: 08/11/2017 Time Performed: 15:00:44 PTAGE: 47 years EKG: Sinus rhythm Since previous tracing, no significant change noted NORMAL ECG PREVIOUS TRACING : 08/22/2016 23.33.48 DOCTOR: Tasha Sanchez Interpretating Date/Time 08/12/2017 16:30:24
== END 2017-08-11 18:49 | disposition home or self-care (01) ==
LOC: PHED 15:01 → PHEFT 18:49
DX: J09.X2 Influenza due to identified novel influenza A virus with other respiratory manifestations (principal); I10 Essential (primary) hypertension; E78.00 Pure hypercholesterolemia, unspecified; E11.9 Type 2 diabetes mellitus without complications; Z79.84 Long term (current) use of oral hypoglycemic drugs; Z79.899 Other long term (current) drug therapy
CPT/HCPCS: 71046; 80053; 85025; 87804; 93005; 96361; 96374; 96375; 99285; J1885; J2405; J7030

== ENCOUNTER 2017-09-20 10:35 | Emergency (ER) | payer OTHER ==
[~2017-09-20] VITALS: Ht 175.3 cm; Wt 111.0 kg
[~2017-09-20 10:35] MED LIST changes: -AMPI500C8 PO; -BACT800T5 PO; -CEPH-460 PO; -DIFL150T PO; -LISI-515 PO; +LISI10TA3 PO; -NYST15T TOPICAL; +ZOFR4TAB3 SL
[2017-09-20 10:38] VITALS: BP 159/85; PULSE 100; RESP 14; TEMP 98.6; O2SAT 98
--- NOTE | 2017-09-20 11:23 | PD ---
HPI Chief Complaint: Flank/Kidney Pain Time Seen by Provider: 11:14 Travel History International Travel<30 days: No Contact w/Intl Traveler<30days: No Traveled to known affect area: No History of Present Illness HPI Patient is a 47-year-old male presents emergency department for evaluation of right back spasms since yesterday associated with some burning on urination and blood in his urine. Denies any trauma. patient states this never happened before. He thought it was just a muscular problem but when he noticed the burning urination and blood in the urine he decided to come to be checked out. Has never had any kidney stones before. Denies any nausea vomiting diarrhea constipation chest pain shortness of breath. He states his symptoms are waxing and waning, 8 out of 10 in severity, associated signs and symptoms and context as above PFSH Past Medical History Hx Anticoagulant Therapy: No Cardiovascular Problems: No High Cholesterol: Yes Cerebrovascular Accident: No Diabetes: Yes Patient Takes Glucophage: Yes Diminished Hearing: No Hypertension: Yes Respiratory: No Influenza Vaccination: No Past Surgical History Surgical History: No Previous Surgery Social History Alcohol Use: Yes (occas) Tobacco Use: Yes ( smokes 3-4 cigs a day) Substance Use: No Allergies-Medications (Allergen,Severity, Reaction): Coded Allergies: No Known Allergies (Verified Adverse Reaction, Unknown, 09/20/17) Reported Meds & Prescriptions Reported Meds & Active Scripts Active Metformin (Metformin HCl) 1,000 Mg Tab 1,000 Mg PO BIDPC With meals Reported Lisinopril 10 Mg Tab 10 Mg PO DAILY Jardiance (Empagliflozin) 10 Mg Tab 25 Mg PO DAILY Simvastatin 20 Mg Tab 20 Mg PO DAILY Review of Systems Except as stated in HPI: all other systems reviewed are Neg Physical Exam Narrative GENERAL: Well-developed well-nourished no obvious distress SKIN: Focused skin assessment warm/dry. HEAD: Atraumatic. Normocephalic. EYES: Pupils equal and round. No scleral icterus. No injection or drainage. ENT: No nasal bleeding or discharge. Mucous membranes pink and moist. NECK: Trachea midline. No JVD. CARDIOVASCULAR: Regular rate and rhythm. No murmur appreciated. RESPIRATORY: No accessory muscle use. Clear to auscultation. Breath sounds equal bilaterally. GASTROINTESTINAL: Abdomen soft, non-tender, nondistended. Hepatic and splenic margins not palpable. Minimal right sided CVA tenderness. MUSCULOSKELETAL: No obvious deformities. No clubbing. No cyanosis. No edema. NEUROLOGICAL: Awake and alert. No obvious cranial nerve deficits. Motor grossly within normal limits. Normal speech. PSYCHIATRIC: Appropriate mood and affect; insight and judgment normal. Data Data Last Documented VS Vital Signs Date Time Temp Pulse Resp B/P (MAP) Pulse Ox O2 Delivery O2 Flow Rate FiO2 09/20/17 15:44 09/20/17 14:24 17 09/20/17 10:38 98.6 100 98 Room Air Orders Orders Complete Blood Count With Diff (09/20/17 11:17) Comprehensive Metabolic Panel (09/20/17 11:17) Lipase (09/20/17 11:17) Urinalysis - C+S If Indicated (09/20/17 11:17) Iv Access Insert/Monitor (09/20/17 11:17) Ecg Monitoring (09/20/17 11:17) Oximetry (09/20/17 11:17) Sodium Chloride 0.9% Flush (Ns Flush) (09/20/17 11:30) Ketorolac Inj (Toradol Inj) (09/20/17 11:30) Ct Abd/Pel W/O Iv Contrast (09/20/17 ) Ed Discharge Order (09/20/17 14:28) Labs Laboratory Tests Test 09/20/17 11:14 09/20/17 11:15 Urine Color YELLOW Urine Turbidity CLEAR Urine pH 6.5 Urine Specific [place] 1.021 Urine Protein 100 mg/dL Urine Glucose (UA) NEG mg/dL Urine Ketones NEG mg/dL Urine Occult Blood NEG Urine Nitrite NEG Urine Bilirubin NEG Urine Urobilinogen 2.0 MG/DL Urine Leukocyte Esterase NEG Urine RBC 1 /hpf Urine WBC 2 /hpf Urine Mucus FEW /lpf Microscopic Urinalysis Comment CULT NOT INDICATED White Blood Count 10.8 TH/MM3 Red Blood Count 5.17 MIL/MM3 Hemoglobin 15.4 GM/DL Hematocrit 43.8 % Mean Corpuscular Volume 84.6 FL Mean Corpuscular Hemoglobin 29.8 PG Mean Corpuscular Hemoglobin Concent 35.3 % Red Cell Distribution Width 14.1 % Platelet Count 256 TH/MM3 Mean Platelet Volume 7.0 FL Neutrophils (%) (Auto) 68.8 % Lymphocytes (%) (Auto) 23.0 % Monocytes (%) (Auto) 6.5 % Eosinophils (%) (Auto) 0.6 % Basophils (%) (Auto) 1.1 % Neutrophils # (Auto) 7.4 TH/MM3 Lymphocytes # (Auto) 2.5 TH/MM3 Monocytes # (Auto) 0.7 TH/MM3 Eosinophils # (Auto) 0.1 TH/MM3 Basophils # (Auto) 0.1 TH/MM3 CBC Comment DIFF FINAL Differential Comment Blood Urea Nitrogen 9 MG/DL Creatinine 1.00 MG/DL Random Glucose 137 MG/DL Total Protein 7.2 GM/DL Albumin 3.8 GM/DL Calcium Level 9.0 MG/DL Alkaline Phosphatase 81 U/L Aspartate Amino Transf (AST/SGOT) 29 U/L Alanine Aminotransferase (ALT/SGPT) 37 U/L Total Bilirubin 0.8 MG/DL Sodium Level 141 MEQ/L Potassium Level 3.7 MEQ/L Chloride Level 107 MEQ/L Carbon Dioxide Level 29.5 MEQ/L Anion Gap 5 MEQ/L Estimat Glomerular Filtration Rate 98 ML/MIN Lipase 89 U/L [facility] Medical Decision Making Medical Screen Exam Complete: Yes Emergency Medical Condition: Yes Differential Diagnosis Kidney stone, back spasm, pyelonephritis, hydronephrosis. Narrative Course Patient room to the emergency department, unclear etiology of the pain, UA was negative, basic labs negative, he was offered a CAT scan of his abdomen was taken and there was no internal abnormality noted. Last 24 hours Impressions Abdomen/Pelvis CT 09/20/17 0000 Signed Impressions: Service Date/Time: Wednesday, September 20, 2017 13:43 - CONCLUSION: No acute abnormality is seen. Kyler Hopkins MD Discussed results with the patient is feeling better, discussed follow-up with his primary care physician and return to ED criteria. He is stable for discharge, no definitive cause of the pain has been identified certainly musculoskeletal could be entertained. Diagnosis Primary Impression: Flank pain Disposition: DISCHARGE HOME Condition: Stable Ayush Castañeda MD Sep 20, 2017 11:22
[2017-09-20] MEDS ORDERED: SODIUM CHLORIDE 0.9% FLUSH 10 ML FLUSH IV FLUSH PRN (11:30)
[2017-09-20] MEDS ORDERED: KETOROLAC TROMETHAMINE 30 MG/ML (IVP) VIAL IVP ONE (11:30)
[2017-09-20 11:44] LABS: AUTOMATED NEUTROPHIL # 7.4 TH/MM3 (1.8-7.7); BASOPHIL # 0.1 TH/MM3 (0-0.2); BASOPHIL % 1.1 % (0.0-2.0); EOSINOPHIL # 0.1 TH/MM3 (0-0.4); EOSINOPHIL % 0.6 % (0.0-4.0); HEMATOCRIT 43.8 % (39.0-51.0); HEMOGLOBIN 15.4 GM/DL (13.0-17.0); LYMPHOCYTE # 2.5 TH/MM3 (1.0-4.8); MEAN CELL VOLUME 84.6 FL (80.0-100.0); MEAN CORPUSCULAR HEMOGLOBIN 29.8 PG (27.0-34.0); MEAN CORPUSCULAR HGB CONC 35.3 % (32.0-36.0); MONO % 6.5 % (0.0-8.0); MONOCYTE # 0.7 TH/MM3 (0-0.9); NEUT % 68.8 % (16.0-70.0); PLATELET COUNT 256 TH/MM3 (150-450); RED BLOOD COUNT 5.17 MIL/MM3 (4.50-5.90); RED CELL DISTRIBUTION WIDTH 14.1 % (11.6-17.2); WHITE BLOOD COUNT 10.8 TH/MM3 (4.0-11.0)
[2017-09-20 11:49] LABS: BILIRUBIN, URINE NEG (NEG); BLOOD, URINE NEG (NEG); GLUCOSE,URINE NEG (NEG); KETONE, URINE NEG (NEG); MUCUS URINE FEW /lpf (OCC); NITRITE,URINE NEG (NEG); PH, URINE 6.5 (5.0-8.5); URINE COLOR YELLOW (YELLW/STRAW); URINE LEUKOCYTE ESTERASE NEG (NEG)
[2017-09-20 12:02] LABS: ALKALINE PHOSPHATASE 81 U/L (45-117); TOTAL BILIRUBIN ADULT 0.8 MG/DL (0.2-1.0); TOTAL PROTEIN 7.2 GM/DL (6.4-8.2)
[2017-09-20 12:05] LABS: ALBUMIN 3.8 GM/DL (3.4-5.0); ALT (GPT) 37 U/L (12-78); AST (GOT) 29 U/L (15-37); BICARBONATE 29.5 MEQ/L (21.0-32.0); BLOOD UREA NITROGEN 9 MG/DL (7-18); CHLORIDE 107 MEQ/L (98-107); GLOMERULAR FILTRATION RATE 98 ML/MIN (>89); GLUCOSE,RANDOM 137 MG/DL (74-106); SODIUM (NA) 141 MEQ/L (136-145)
--- NOTE | 2017-09-20 13:57 | RADRPT ---
EXAM DATE/TIME: 09/20/2017 13:43 [facility] COMPARISON: No previous studies available for comparison. INDICATIONS : Left flank pain today. ORAL CONTRAST: No oral contrast ingested. RADIATION DOSE: 8.54 CTDIvol (mGy) MEDICAL HISTORY : Diabetes mellitus type 2. Hypertension. SURGICAL HISTORY : None. ENCOUNTER: Initial ACUITY: 1 day PAIN SCALE: 5/10 LOCATION: Left flank TECHNIQUE: Volumetric scanning of the abdomen and pelvis was performed. Using automated exposure control and ad justment of the mA and/or kV according to patient size, radiation dose was kept as low as reasonably achievable to obtain optimal diagnostic quality images. DICOM format image data is available electro nically for review and comparison. FINDINGS: LOWER LUNGS: The visualized lower lungs are clear. LIVER: Homogeneous density without lesion. There is no dilation of the biliary tree. No calcified gallston es. SPLEEN: Normal size without lesion. PANCREAS: Within normal limits. KIDNEYS: Normal in size and shape. There is no mass, stone, or hydronephrosis. ADRENAL GLANDS: There is a 1.8 cm left adrenal gland mass. This measures -29 Hounsfield units and is consistent with an adenoma. VASCULAR: There is no aortic aneurysm. There is scattered arterial calcification seen. BOWEL/MESENTERY: The stomach, small bowel, and colon demonstrate no acute abnormality. There is no free intraperitone al air or fluid. ABDOMINAL WALL: Within normal limits. RETROPERITONEUM: There is no lymphadenopathy. BLADDER: No wall thickening or mass. REPRODUCTIVE: Within normal limits. INGUINAL: There is no lymphadenopathy or hernia. MUSCULOSKELETAL: There are anterior osteophytes and fusion at the anteriormost aspect of the right sacroiliac joint. CONCLUSION: No acute abnormality is seen. Kyler Hopkins MD on September 20, 2017 at 13:52 Board Certified Radiologist. This report was verified electronically.
[2017-09-20 14:24] VITALS: RESP 17
== END 2017-09-20 15:45 | disposition home or self-care (01) ==
LOC: NEPE 10:35
DX: R10.9 Unspecified abdominal pain (principal); E11.9 Type 2 diabetes mellitus without complications; E78.00 Pure hypercholesterolemia, unspecified; I10 Essential (primary) hypertension; F17.210 Nicotine dependence, cigarettes, uncomplicated; Z79.84 Long term (current) use of oral hypoglycemic drugs
CPT/HCPCS: 74176; 80053; 81001; 83690; 85025; 96374; 99284; J1885

== ENCOUNTER 2017-10-25 02:38 | Emergency (ER) | payer OTHER ==
[~2017-10-25] VITALS: Ht 175.3 cm; Wt 110.0 kg
[~2017-10-25 02:38] MED LIST changes: -ZOFR4TAB3 SL
[2017-10-25 02:40] VITALS: BP 128/79; PULSE 99; RESP 16; TEMP 98.6
--- NOTE | 2017-10-25 03:46 | PD ---
HPI Chief Complaint: Dizziness Time Seen by Provider: 03:29 Travel History International Travel<30 days: No Contact w/Intl Traveler<30days: No Traveled to known affect area: No History of Present Illness HPI 47-year-old male complains of headache, generalized malaise and near syncope. Patient states that the symptoms started earlier today. Patient states he has not been eating well all day today. Patient states that he has frontal headache. Patient states that headache is aching headache localized to the front of the head. Patient denies any visual change. Patient denies any neck pain. Patient denies any chest pain or shortness of breath. Patient denies abdominal pain. Patient denies any nausea vomiting diarrhea. Patient has history of diabetes and has been taking metformin and guardians. Patient states that his blood sugar has been around 130 at home. PFSH Past Medical History Hx Anticoagulant Therapy: No Cardiovascular Problems: No High Cholesterol: Yes Cerebrovascular Accident: No Diabetes: Yes Patient Takes Glucophage: Yes Diminished Hearing: No Hypertension: Yes Respiratory: No Influenza Vaccination: No Past Surgical History Surgical History: No Previous Surgery Social History Alcohol Use: Yes (occas) Tobacco Use: Yes ( smokes 3-4 cigs a day) Substance Use: No Allergies-Medications (Allergen,Severity, Reaction): Coded Allergies: No Known Allergies (Verified Adverse Reaction, Unknown, 10/25/17) Reported Meds & Prescriptions Reported Meds & Active Scripts Active Metformin (Metformin HCl) 1,000 Mg Tab 1,000 Mg PO BIDPC With meals Reported Lisinopril 10 Mg Tab 10 Mg PO DAILY Jardiance (Empagliflozin) 10 Mg Tab 25 Mg PO DAILY Simvastatin 20 Mg Tab 20 Mg PO DAILY Review of Systems General / Constitutional: No: Fever Eyes: No: Visual changes HENT: Positive: Headaches, Lightheadedness Cardiovascular: No: Chest Pain or Discomfort Respiratory: No: Shortness of Breath Gastrointestinal: No: Abdominal Pain Genitourinary: No: Dysuria Musculoskeletal: No: Pain Skin: No Rash Neurologic: No: Weakness Psychiatric: No: Depression Endocrine: No: Polydipsia Hematologic/Lymphatic: No: Easy Bruising Physical Exam Narrative GENERAL: Well-nourished, well-developed patient. SKIN: Focused skin assessment warm/dry. HEAD: Normocephalic. EYES: No scleral icterus. No injection or drainage. NECK: Supple, trachea midline. No JVD or lymphadenopathy. CARDIOVASCULAR: Regular rate and rhythm without murmurs, gallops, or rubs. RESPIRATORY: Breath sounds equal bilaterally. No accessory muscle use. GASTROINTESTINAL: Abdomen soft, non-tender, nondistended. MUSCULOSKELETAL: No cyanosis, or edema. BACK: Nontender without obvious deformity. No CVA tenderness. Neurologic exam normal. Data Data Last Documented VS Vital Signs Date Time Temp Pulse Resp B/P (MAP) Pulse Ox O2 Delivery O2 Flow Rate FiO2 10/25/17 04:05 95 16 159/78 (105) 100 10/25/17 02:40 98.6 Orders Orders Complete Blood Count With Diff (10/25/17 03:42) Basic Metabolic Panel (Bmp) (10/25/17 03:42) Ct Brain W/O Iv Contrast(Rout) (10/25/17 03:42) Iv Access Insert/Monitor (10/25/17 03:42) Ecg Monitoring (10/25/17 03:42) Ed Discharge Order (10/25/17 05:37) Labs Laboratory Tests Test 10/25/17 04:00 White Blood Count 10.9 TH/MM3 Red Blood Count 4.99 MIL/MM3 Hemoglobin 14.9 GM/DL Hematocrit 43.0 % Mean Corpuscular Volume 86.1 FL Mean Corpuscular Hemoglobin 29.8 PG Mean Corpuscular Hemoglobin Concent 34.7 % Red Cell Distribution Width 13.8 % Platelet Count 229 TH/MM3 Mean Platelet Volume 7.6 FL Neutrophils (%) (Auto) 66.4 % Lymphocytes (%) (Auto) 23.8 % Monocytes (%) (Auto) 7.9 % Eosinophils (%) (Auto) 0.8 % Basophils (%) (Auto) 1.1 % Neutrophils # (Auto) 7.2 TH/MM3 Lymphocytes # (Auto) 2.6 TH/MM3 Monocytes # (Auto) 0.9 TH/MM3 Eosinophils # (Auto) 0.1 TH/MM3 Basophils # (Auto) 0.1 TH/MM3 CBC Comment DIFF FINAL Differential Comment Blood Urea Nitrogen 15 MG/DL Creatinine 1.05 MG/DL Random Glucose 100 MG/DL Calcium Level 8.5 MG/DL Sodium Level 142 MEQ/L Potassium Level 3.7 MEQ/L Chloride Level 104 MEQ/L Carbon Dioxide Level 30.3 MEQ/L Anion Gap 8 MEQ/L Estimat Glomerular Filtration Rate 93 ML/MIN [facility] Medical Decision Making Medical Screen Exam Complete: Yes Emergency Medical Condition: Yes Interpretation(s) Last Impressions Head CT 10/25/17 0342 Signed Impressions: Service Date/Time: Wednesday, October 25, 2017 04:39 - CONCLUSION: Normal examination except for a subtle hypodensity in the deep white matter tracts in the left temporoparietal region measuring a centimeter across between images 18 and 19. Could be followed with a nonemergent MRI if symptoms persist. Titus Diallo MD 5:32 AM. CBC within normal limits. BMP within normal limits. Differential Diagnosis Differential diagnosis including viral syndrome, migraine headache, tension headache, close to headache, electrolyte abnormality. Narrative Course 47-year-old male with complains of headache, lightheadedness, generalized malaise. Diagnosis Primary Impression: Cephalgia Qualified Codes: R51 - Headache Additional Impression: Viral syndrome Patient Instructions: General Instructions Additional Instructions: Ibuprofen as needed for headache. Follow-up with personal physician. Return if persistent problem or worse. Follow-up with neurologist for MRI of the brain if persistent problem. Med/Other Pt SpecificInfo: No Change to Meds Disposition: 01 DISCHARGE HOME Condition: Stable Delgado Shah MD Oct 25, 2017 03:46
[2017-10-25 04:05] VITALS: BP 159/78; PULSE 95; RESP 16; O2SAT 100
[2017-10-25 04:13] LABS: AUTOMATED NEUTROPHIL # 7.2 TH/MM3 (1.8-7.7); BASOPHIL # 0.1 TH/MM3 (0-0.2); BASOPHIL % 1.1 % (0.0-2.0); EOSINOPHIL # 0.1 TH/MM3 (0-0.4); EOSINOPHIL % 0.8 % (0.0-4.0); HEMOGLOBIN 14.9 GM/DL (13.0-17.0); LYMPH % 23.8 % (9.0-44.0); LYMPHOCYTE # 2.6 TH/MM3 (1.0-4.8); MEAN CELL VOLUME 86.1 FL (80.0-100.0); MEAN CORPUSCULAR HEMOGLOBIN 29.8 PG (27.0-34.0); MEAN CORPUSCULAR HGB CONC 34.7 % (32.0-36.0); MEAN PLATELET VOLUME 7.6 FL (7.0-11.0); MONO % 7.9 % (0.0-8.0); MONOCYTE # 0.9 TH/MM3 (0-0.9); NEUT % 66.4 % (16.0-70.0); PLATELET COUNT 229 TH/MM3 (150-450); RED BLOOD COUNT 4.99 MIL/MM3 (4.50-5.90); RED CELL DISTRIBUTION WIDTH 13.8 % (11.6-17.2); WHITE BLOOD COUNT 10.9 TH/MM3 (4.0-11.0)
[2017-10-25 04:43] LABS: BICARBONATE 30.3 MEQ/L (21.0-32.0); CALCIUM 8.5 MG/DL (8.5-10.1); CREATININE 1.05 MG/DL (0.60-1.30)
--- NOTE | 2017-10-25 05:16 | RADRPT ---
EXAM DATE/TIME: 10/25/2017 04:39 [place] COMPARISON: No previous studies available for comparison. INDICATIONS : Cephalgia. Dizziness. RADIATION DOSE: 56.35 CTDIvol (mGy) MEDICAL HISTORY : Hypertension. Diabetes. SURGICAL HISTORY : None. ENCOUNTER: Initial ACUITY: 1 day PAIN SCALE: 4/10 LOCATION: cranial TECHNIQUE: Multiple contiguous axial images were obtained of the head. Using automated exposure control and adj ustment of the mA and/or kV according to patient size, radiation dose was kept as low as reasonably a chievable to obtain optimal diagnostic quality images. DICOM format image data is available electro nically for review and comparison. FINDINGS: CEREBRUM: The ventricles are normal for age. No evidence of midline shift, mass lesion, hemorrhage or acute in farction except for a subtle hypodensity in the deep white matter tracts in the left temporoparietal region measuring a centimeter across between images 18 and 19. No extra-axial fluid collections are seen. POSTERIOR FOSSA: The cerebellum and brainstem are intact. The 4th ventricle is midline. The cerebellopontine angle i s unremarkable. EXTRACRANIAL: The visualized portion of the orbits is intact. SKULL: The calvaria is intact. No evidence of skull fracture. CONCLUSION: Normal examination except for a subtle hypodensity in the deep white matter tracts in the left tempor oparietal region measuring a centimeter across between images 18 and 19. Could be followed with a non emergent MRI if symptoms persist. Titus Diallo MD on October 25, 2017 at 5:13 Board Certified Radiologist. This report was verified electronically.
== END 2017-10-25 06:20 | disposition home or self-care (01) ==
LOC: NEPC 02:38
DX: R51 Headache (principal); B34.9 Viral infection, unspecified; E11.9 Type 2 diabetes mellitus without complications; E78.00 Pure hypercholesterolemia, unspecified; I10 Essential (primary) hypertension; F17.210 Nicotine dependence, cigarettes, uncomplicated; Z79.899 Other long term (current) drug therapy
CPT/HCPCS: 70450; 80048; 85025; 99284